=== PATIENT | female | born 1970 | race Caucasian/White ===

== ENCOUNTER → 2019-09-25 14:48 | Outpatient (BNVA) | payer SELFPAY | PROVIDERS: Family Provider Nurse Practitioner Family; PCP Family Medicine; Visit Provider Registered Nurse | DX: Z13.228 Encounter for screening for other metabolic disorders (principal) | CPT/HCPCS: 80061; 83036 ==

== ENCOUNTER → 2019-11-30 17:24 | Outpatient (BNVA) | payer OTHER, SELFPAY | PROVIDERS: Family Provider Nurse Practitioner Family; PCP Family Medicine; Visit Provider Family Medicine | DX: I10 Essential (primary) hypertension (principal); R25.2 Cramp and spasm; F32.9 Major depressive disorder, single episode, unspecified; E11.69 Type 2 diabetes mellitus with other specified complication; Z79.4 Long term (current) use of insulin; F32.1 Major depressive disorder, single episode, moderate | CPT/HCPCS: 80048; 83735 ==

== ENCOUNTER → 2020-11-14 13:47 | Outpatient (BNVA) | payer OTHER, SELFPAY ==
[2019-10-02 14:29] VITALS: BP 172/88; BMI 50.3
== END ==
PROVIDERS: Family Provider Nurse Practitioner Family; PCP Family Medicine; Visit Provider Dermatology
DX: F41.1 Generalized anxiety disorder (principal)
CPT/HCPCS: 36415; 80061; 83036

== ENCOUNTER → 2021-04-26 15:19 | Outpatient (BNVA) | payer OTHER, SELFPAY ==
[2020-11-19 12:51] VITALS: BP 156/87; BMI 49.2
== END ==
PROVIDERS: Family Provider Nurse Practitioner Family; PCP Family Medicine; Visit Provider Nurse Practitioner Family
DX: A64 Unspecified sexually transmitted disease (principal); N89.8 Other specified noninflammatory disorders of vagina; N39.0 Urinary tract infection, site not specified
CPT/HCPCS: 81000; 87491; 87591; 87661

== ENCOUNTER → 2022-06-23 10:05 | Outpatient (BNVA) | payer OTHER, SELFPAY ==
[2020-11-19 12:51] VITALS: BP 156/87; BMI 49.2
== END ==
PROVIDERS: Family Provider Nurse Practitioner Family; PCP Registered Nurse; Visit Provider Emergency Medicine
DX: R30.0 Dysuria (principal); B37.31 Acute candidiasis of vulva and vagina; N30.00 Acute cystitis without hematuria
CPT/HCPCS: 81000

== ENCOUNTER → 2022-07-02 10:23 | Outpatient (BNVA) | payer OTHER, SELFPAY ==
[2020-11-19 12:51] VITALS: BP 156/87; BMI 49.2
== END ==
PROVIDERS: Family Provider Nurse Practitioner Family; PCP Registered Nurse; Visit Provider Nurse Practitioner Family
DX: R07.9 Chest pain, unspecified (principal); R10.9 Unspecified abdominal pain; N92.0 Excessive and frequent menstruation with regular cycle; R10.84 Generalized abdominal pain; N92.1 Excessive and frequent menstruation with irregular cycle; N30.01 Acute cystitis with hematuria; N39.0 Urinary tract infection, site not specified
CPT/HCPCS: 81000; 87086

== ENCOUNTER → 2022-08-20 17:01 | Outpatient (BNVA) | payer OTHER, SELFPAY ==
[2020-11-19 12:51] VITALS: BP 156/87; BMI 49.2
== END ==
PROVIDERS: PCP Registered Nurse; Visit Provider Nurse Practitioner Family
DX: R69 Illness, unspecified (principal); J40 Bronchitis, not specified as acute or chronic; H65.112 Acute and subacute allergic otitis media (mucoid) (sanguinous) (serous), left ear; J32.9 Chronic sinusitis, unspecified; B97.89 Other viral agents as the cause of diseases classified elsewhere; I10 Essential (primary) hypertension
CPT/HCPCS: 87400; 87426

== ENCOUNTER → 2024-05-19 09:37 | Outpatient (BNVA) | payer BC, MEDICAID, SELFPAY ==
[2020-11-19 12:51] VITALS: BP 156/87; BMI 49.2
== END ==
PROVIDERS: PCP Nurse Practitioner; Visit Provider Nurse Practitioner
DX: S46.911A Strain of unspecified muscle, fascia and tendon at shoulder and upper arm level, right arm, initial encounter (principal); M19.011 Primary osteoarthritis, right shoulder; M75.81 Other shoulder lesions, right shoulder; M25.711 Osteophyte, right shoulder; X58.XXXA Exposure to other specified factors, initial encounter
CPT/HCPCS: 73030